=== PATIENT | female | born 1995 | race African-American/Black ===

== ENCOUNTER 2017-12-27 14:53 | Emergency (ER) | payer MEDICAID ==
[2017-12-27 15:57] LABS: Bilirubin Negative (Negative); Blood, Urine Negative (Negative); Clarity CLEAR (Clear); Glucose, Urine (Dipstick) Negative (Negative); Leukocyte Small (Negative); Nitrite Negative (Negative); Protein, Urine (Dipstick) Trace mg/dL (Neg-Trace); Specific Gravity, Urine 1.027 (1.002-1.036)
[2017-12-27 15:58] LABS: Pregnancy Test - Urine (BHCG) Negative (Negative); Pregu Control Background? CLEAR/WHITE (CLR/WHITE); Pregu Control Bar Appear? YES (CONTROL BAR); Specific Gravity 1.027 (1.002-1.036)
[2017-12-27 15:59] LABS: Bacteria/HPF None Seen HPF (None Seen); Hyaline Casts/LPF 0-3 HYALINE CAST LPF (0-3 Hyaline); RBC/HPF 0-3 HPF (0-3)
[2017-12-27 16:00] LABS: Yeast-AUWi Flag 36.9 (0-25.0)
[2017-12-27 16:07] LABS: Trichomonas/HPF 2+ HPF (None Seen); Yeast-All Forms 1+ HPF (None Seen)
[2017-12-27] MEDS ORDERED: metroNIDAZOLE 250 MG TAB ONE (16:20)
[2017-12-27] MEDS ORDERED: Azithromycin 250 MG TAB ONE (16:20)
[2017-12-27] MEDS ORDERED: cefTRIAXone\\ROCEPHIN 250 MG VIAL ONE (16:20)
[2017-12-27] MEDS ORDERED: Lidocaine 2% PF 5 ML VIAL ONE (16:20)
[2017-12-27] MEDS ORDERED: Ondansetron ODT 4 MG TAB ONE (16:21)
[2017-12-27] MEDS ORDERED: Fluconazole 100 MG TAB PO SCH (16:45)
[2017-12-29 20:34] LABS: Chlamydia by PCR DETECTED (NotDetected); GC by PCR Not Detected (NotDetected)
== END 2017-12-27 18:05 | disposition home or self-care (01) ==
LOC: ERS 14:53
DX: A59.01 Trichomonal vulvovaginitis (principal); N73.9 Female pelvic inflammatory disease, unspecified; B37.3 Candidiasis of vulva and vagina
CPT/HCPCS: 81003; 81015; 81025; 87086; 87480; 87491; 87510; 87591; 87660; 96372; J0696; J2001; Q0162

== ENCOUNTER 2018-01-22 16:14 | Emergency (ER) | payer MEDICAID ==
--- NOTE | 2018-01-22 18:06 | RAD ---
LEFT ANKLE THREE VIEWS 01/22/18 HISTORY: Injury. COMPARISON: None. FINDINGS: There is mild soft tissue edema. No displaced fracture or malalignment. No lateral process of a talus fracture. Ankle mortise is congruent. No osteochondral lesion. IMPRESSION: No displaced fracture or malalignment. POS: [facility]
[2018-01-22] MEDS ORDERED: Ibuprofen 200 MG TAB ONE (18:37)
== END 2018-01-22 18:41 | disposition home or self-care (01) ==
LOC: ERS 16:14
DX: M79.89 Other specified soft tissue disorders (principal)

== ENCOUNTER 2018-04-03 16:24 | Emergency (ER) | payer SELFPAY ==
[2018-04-03 16:50] LABS: Bilirubin Negative (Negative); Blood, Urine Small (Negative); Clarity TURBID (Clear); Glucose, Urine (Dipstick) Negative (Negative); Leukocyte Large (Negative); Nitrite Negative (Negative); Protein, Urine (Dipstick) 100 mg/dL (Neg-Trace); Specific Gravity, Urine 1.028 (1.002-1.036); Urobilinogen 0.2 mg/dL (0.2-1.0); pH, Urine 8.5 (5.0-9.0)
[2018-04-03 16:52] LABS: Bacteria/HPF 4+ HPF (None Seen)
[2018-04-03 16:53] LABS: Pathc Cast-AUWi Flag 3.05 (0-2.49)
[2018-04-03 17:08] LABS: Crystals/HPF 1+ TRIPLE PHOS HPF (Negative)
== END 2018-04-03 17:37 | disposition home or self-care (01) ==
LOC: ERS 16:24
DX: N39.0 Urinary tract infection, site not specified (principal)
CPT/HCPCS: 81003; 81015; 87077; 87086; 87186; 99283

== ENCOUNTER 2018-06-29 13:05 | Emergency (ER) | payer SELFPAY ==
[2018-06-29 13:51] LABS: Pregnancy Test - Urine (BHCG) Negative (Negative); Pregu Control Background? CLEAR/WHITE (CLR/WHITE); Pregu Control Bar Appear? YES (CONTROL BAR); Specific Gravity 1.021 (1.002-1.036)
== END 2018-06-29 14:38 | disposition home or self-care (01) ==
LOC: ERS 13:05
DX: N75.1 Abscess of Bartholin's gland (principal)
CPT/HCPCS: 56420; 81025

== ENCOUNTER 2018-09-09 16:56 | Emergency (ER) | payer SELFPAY | END 2018-09-09 18:49 | disposition home or self-care (01) | LOC: ERS 16:56 | DX: N75.0 Cyst of Bartholin's gland (principal) | CPT/HCPCS: 99282 ==

== ENCOUNTER 2018-09-11 07:43 | Emergency (ER) | payer SELFPAY ==
[2018-09-11] MEDS ORDERED: Lidocaine 1% w/Epinephrine 1:100K 20 ML VIAL ONE (09:30)
== END 2018-09-11 09:49 | disposition home or self-care (01) ==
LOC: ERS 07:43
DX: N75.1 Abscess of Bartholin's gland (principal)
CPT/HCPCS: 56420; J2001

== ENCOUNTER 2018-10-28 13:16 | Emergency (ER) | payer SELFPAY ==
[2018-10-28 14:08] LABS: Hemoglobin 14.4 g/dL (12.0-16.0); Mean Corpuscular HGB CONC 32.9 g/dL (32.0-36.0); Mean Corpuscular Hemoglobin 29.8 pg (27.0-31.0); Mean Corpuscular Volume 90.6 fL (78.0-98.0); Mean Platelet Volume 9.4 fL (7.4-10.4); Platelet Count 203 thou/uL (130-400); RBC Distribution Width 11.9 % (11.5-14.5); Red Blood Cell (RBC) Count 4.83 mill/uL (4.20-5.40)
[2018-10-28 14:26] LABS: ALT (SGPT) 21 U/L (8-55); AST (SGOT) 13 U/L (5-34); Albumin 3.9 g/dL (3.5-5.0); Alkaline Phosphatase 71 U/L (40-150); Anion Gap 13 mmol/L (10-20); BUN (Urea Nitrogen) 10 mg/dL (7.0-18.7); Bilirubin, Total 0.9 mg/dL (0.2-1.2); Calc. Creatinine Clearance 0 mL/min (70-130); Calcium 9.3 mg/dL (7.8-10.44); Carbon Dioxide 24 mmol/L (22-29); Chloride 105 mmol/L (98-107); Estimated GFR-MDRD Greater than 90; Globulin 3.2 g/dL (2.4-3.5); Glucose 81 mg/dL (70-105); Lipase 24 U/L (8-78); Potassium 4.1 mmol/L (3.5-5.1); Protein, Total 7.1 g/dL (6.0-8.3); Sodium 138 mmol/L (136-145)
[2018-10-28 14:42] LABS: Band 1 % (5-11); Lymphocytes 65 % (21-51); MDiff Complete? YES; Monocytes 7 % (0-10); Neutrophil 27 % (42-75); PLT Morphology Comment Appears Adequate
[2018-10-28 14:54] LABS: Bilirubin Negative (Negative); Blood, Urine Negative (Negative); Clarity CLEAR (Clear); Glucose, Urine (Dipstick) Negative (Negative); Leukocyte Negative (Negative); Nitrite Negative (Negative); Protein, Urine (Dipstick) Negative (Neg-Trace); Specific Gravity, Urine 1.027 (1.002-1.036); Urobilinogen 0.2 mg/dL (0.2-1.0)
[2018-10-28 14:59] LABS: Pregnancy Test - Urine (BHCG) Negative (Negative); Pregu Control Bar Appear? YES (CONTROL BAR); Specific Gravity 1.027 (1.002-1.036)
[2018-10-28 15:00] LABS: Pregu Control Background? CLEAR/WHITE (CLR/WHITE)
== END 2018-10-28 14:50 | disposition home or self-care (01) ==
LOC: ERS 13:16
DX: A08.4 Viral intestinal infection, unspecified (principal)
CPT/HCPCS: 36415; 80053; 81003; 81025; 83690; 85025; 99284

== ENCOUNTER 2019-04-29 20:48 | Emergency (ER) | payer SELFPAY | END 2019-04-29 21:36 | disposition home or self-care (01) | LOC: ERS 20:48 | DX: M21.42 Flat foot [pes planus] (acquired), left foot (principal); M21.41 Flat foot [pes planus] (acquired), right foot | CPT/HCPCS: 99283 ==

== ENCOUNTER 2019-08-13 20:48 | Emergency (ER) | payer SELFPAY ==
[2019-08-13 21:12] LABS: Bacteria/HPF None Seen HPF (None Seen); Bilirubin Negative (Negative); Blood, Urine 2+ (Negative); Clarity Clear (Clear); Glucose, Urine (Dipstick) Normal (Negative); Leukocyte Negative Leu/uL (Negative); Nitrite Negative (Negative); Protein, Urine (Dipstick) Negative (Neg-Trace); RBC/HPF 0-3 HPF (0-3); Squamous Epithelial None Seen HPF (0-3); Urobilinogen Normal mg/dL (Less than 2)
== END 2019-08-13 21:50 | disposition home or self-care (01) ==
LOC: ERS 20:48
DX: N39.0 Urinary tract infection, site not specified (principal)
CPT/HCPCS: 81003; 81015; 99283

== ENCOUNTER 2019-12-11 18:18 | Emergency (ER) | payer SELFPAY | END 2019-12-11 19:03 | disposition home or self-care (01) | LOC: ERS 18:18 | DX: H65.191 Other acute nonsuppurative otitis media, right ear (principal); J06.9 Acute upper respiratory infection, unspecified | CPT/HCPCS: 99282 ==

== ENCOUNTER 2020-09-19 19:20 | Emergency (ER) | payer SELFPAY ==
[2020-09-19 21:58] LABS: #Basophils 0.1 thou/uL (0.0-0.2); #Lymphocytes 2.7 thou/uL (1.20-3.40); #Monocytes 0.7 thou/uL (0.11-0.59); #Neutrophils 11.1 thou/uL (1.40-6.50); %Basophils 0.4 % (0.0-1.0); %Eosinophils 0.3 % (0.0-10.0); %Lymphocytes 18.6 % (21.0-51.0); %Monocytes 4.8 % (0.0-10.0); %Neutrophils 75.9 % (42.0-75.0); Hemoglobin 15.6 g/dL (12.0-16.0); Mean Corpuscular HGB CONC 32.8 g/dL (32.0-36.0); Mean Corpuscular Hemoglobin 28.8 pg (27.0-31.0); Mean Corpuscular Volume 87.8 fL (78.0-98.0); Mean Platelet Volume 9.6 fL (7.4-10.4); Platelet Count 205 thou/uL (130-400); RBC Distribution Width 12.6 % (11.5-14.5); Red Blood Cell (RBC) Count 5.42 mill/uL (4.20-5.40); White Blood Cell (WBC) Count 14.7 thou/uL (4.8-10.8)
[2020-09-19 22:22] LABS: ALT (SGPT) 24 U/L (8-55); AST (SGOT) 20 U/L (5-34); Albumin 3.7 g/dL (3.5-5.0); Alkaline Phosphatase 73 U/L (40-110); Anion Gap 12 mmol/L (10-20); BUN (Urea Nitrogen) 9 mg/dL (7.0-18.7); Bilirubin, Total 0.5 mg/dL (0.2-1.2); Calc. Creatinine Clearance 0 mL/min (70-130); Calcium 8.5 mg/dL (7.8-10.44); Carbon Dioxide 27 mmol/L (22-29); Chloride 104 mmol/L (98-107); Estimated GFR-MDRD 82; Globulin 2.8 g/dL (2.4-3.5); Glucose 99 mg/dL (70-105); Potassium 3.9 mmol/L (3.5-5.1); Protein, Total 6.5 g/dL (6.0-8.3); Sodium 139 mmol/L (136-145)
[2020-09-19 22:47] LABS: Bacteria/HPF None Seen HPF (None Seen); Bilirubin Negative (Negative); Blood, Urine Negative (Negative); Clarity Turbid (Clear); Glucose, Urine (Dipstick) Normal (Negative); Ketone, Urine 10 mg/dL (Negative); Leukocyte 75 Leu/uL (Negative); Mucous/LPF 2+ LPF (<2+); Nitrite Negative (Negative); Protein, Urine (Dipstick) 20 mg/dL (Neg-Trace); RBC/HPF 0-3 HPF (0-3); Specific Gravity, Urine 1.026 (1.002-1.036)
[2020-09-19 22:48] LABS: Pregnancy Test - Urine (BHCG) Negative (Negative); Pregu Control Background? CLEAR/WHITE (CLR/WHITE); Pregu Control Bar Appear? YES (CONTROL BAR); Specific Gravity 1.026 (1.002-1.036)
== END 2020-09-19 23:12 | disposition home or self-care (01) ==
LOC: ERS 19:20
DX: N39.0 Urinary tract infection, site not specified (principal)
CPT/HCPCS: 36415; 80053; 81003; 81015; 81025; 85025; 93005